=== PATIENT | female | born 1945 | race Caucasian/White ===

== ENCOUNTER → 2017-05-01 | Outpatient (CLI) | payer MEDICARE ==
--- NOTE | 2017-05-01 12:24 | XR ---
EXAMINATION TYPE: XR shoulder complete LT DATE OF EXAM: 05/01/2017 COMPARISON: NONE HISTORY: Left shoulder pain TECHNIQUE: Three views are submitted. FINDINGS: The osseous structures are intact. There is no acute fracture or dislocation. Arthropathy of the AC joint noted. Diffuse osteopenia is seen. IMPRESSION: 1. AC joint arthropathy correlate for rotator cuff disease. Follow-up MRI suggested.
== END ==
LOC: RADXRMAIN 10:54
PROVIDERS: ATTEND Family Medicine
DX: M12.812 Other specific arthropathies, not elsewhere classified, left shoulder (principal)

== ENCOUNTER → 2017-06-12 | Outpatient (CLI) | payer MEDICARE ==
--- NOTE | 2017-06-16 09:13 | MM ---
Reason for exam: screening (asymptomatic). History: Patient is postmenopausal. Physical Findings: A clinical breast exam by your physician is recommended on an annual basis and results should be correlated with mammographic findings. MG Screening Mammo w CAD Bilateral CC and MLO view(s) were taken. No prior studies available for comparison. There are scattered fibroglandular densities. There is no discrete abnormality. ASSESSMENT: Negative, BI-RAD 1 RECOMMENDATION: Routine screening mammogram of both breasts in 1 year.
== END | disposition home or self-care (01) ==
LOC: RADMAMWWP 07:59
PROVIDERS: ATTEND Family Medicine
DX: Z12.31 Encounter for screening mammogram for malignant neoplasm of breast (principal)
CPT/HCPCS: 77067